=== PATIENT | female | born 1945 | race Asian ===

== ENCOUNTER → 2017-01-14 | Outpatient (CLI) | payer OTHER | LOC: RAD 04:14 | DX: Z12.31 Encounter for screening mammogram for malignant neoplasm of breast (principal) ==

== ENCOUNTER → 2018-01-19 | Outpatient (CLI) | payer OTHER | LOC: RAD 03:22 | DX: Z12.31 Encounter for screening mammogram for malignant neoplasm of breast (principal) ==

== ENCOUNTER → 2019-01-20 | Outpatient (CLI) | payer OTHER | LOC: RAD 01:08 | DX: Z12.31 Encounter for screening mammogram for malignant neoplasm of breast (principal) ==

== ENCOUNTER → 2020-01-27 | Outpatient (CLI) | payer OTHER | LOC: RAD 11:58 | PROVIDERS: ATTEND Internal Medicine | DX: Z12.31 Encounter for screening mammogram for malignant neoplasm of breast (principal) ==

== ENCOUNTER → 2021-01-28 | Outpatient (CLI) | payer OTHER | LOC: BC 09:49 | PROVIDERS: ATTEND Internal Medicine | DX: Z12.31 Encounter for screening mammogram for malignant neoplasm of breast (principal) ==